=== PATIENT | male | born 1950 | race African-American/Black ===

== ENCOUNTER 2017-01-07 10:14 | Day surgery (SDC) | payer MEDICARE, OTHER ==
--- NOTE | 2017-01-06 14:33 | HP ---
ADMIT DATE: 01/07/2017 HISTORY OF PRESENT ILLNESS: The patient comes in with chief complaint of a right inguinal hernia. The patient noticed the hernia 3 months ago after doing some strenuous labor, hernia located on the right inguinal area. The patient has no acute pain associated with hernia, just slight discomfort elicited on excursion at hernia area that does not radiate anywhere else. PAST MEDICAL HISTORY: Including hypertension and prostatism. PAST SURGICAL HISTORY: Operation on back of the patient's neck for spinal stenosis, a knee operation and a shoulder operation. MEDICATIONS: The patient takes medications for his hypertension, for his prostate and a baby aspirin. ALLERGIES: The patient denies any allergies. SOCIAL HISTORY: The patient smokes a few cigarettes a day and drinks on occasion. The patient does not use any illicit drugs. PHYSICAL EXAMINATION: HEAD, EYES, EARS, NOSE AND NECK: Grossly intact with no abnormalities. CARDIOVASCULAR: Heart has normal heart rate and rhythm is regular. No murmurs. LUNGS: Clear to auscultation bilaterally, no wheezing. ABDOMEN: The right hernia is palpable, expressed with cough. The patient has normal bladder and bowel function. No other abnormalities found at this time. DIAGNOSES: Hypertension, prostatism, and right inguinal hernia. GEO MELGAR MD DR: VIVEK/len JOB#: [id number] / [id number]
[~2017-01-07] VITALS: Ht 177.8 cm; Wt 81.6 kg
[~2017-01-07 10:14] MED LIST: AMLO5TAB2 PO; ASPI-482 PO; ATOR20TA58 PO; FENTANYL PF 100 MCG/2 ML VIAL. IV PRN; HYDROMORPHONE 2 MG/ML VIAL. IV PRN; IV RINGERS,LACTATED 1000ML 1,000 ML IV SCH; LIDOCAINE 1% 1 ML SYRINGE. ID PRN; LOSA1TAB17 PO; MORPHINE SULFATE 2 MG/ML DISP.SYRIN. IV PRN; MULT-690 PO; OMEP40CA5 PO; ONDANSETRON PF 4 MG/2 ML VIAL. IV PRN; PROCHLORPERAZINE 10 MG/2 ML VIAL. IV PRN; TAMS0.4C2 PO; UBID1CAP PO
[2017-01-07 11:23] LABS: BASO # 0.1 x10^3/uL (0.0-0.2); BASO % 1 % (0-3); EOS % 1 % (0-3); HEMATOCRIT 34.2 % (39.0-53.0); HEMOGLOBIN 11.3 g/dL (13.0-17.5); LYMPH # 2.1 x10^3/uL (1.0-4.8); LYMPH % 40 % (24-48); MEAN CORPUSCULAR HEMOGLOBIN 31 pg (25-35); MEAN CORPUSCULAR HGB CONC 33 g/dL (31-37); MEAN CORPUSCULAR VOLUME 93 fL (79-100); MONO % 10 % (0-9); NEUT % 49 % (31-73); PLATELET COUNT 263 x10^3/uL (140-400); RED BLOOD COUNT 3.68 x10^6/uL (4.30-5.70); RED CELL DISTRIBUTION WIDTH 14.7 % (11.5-14.5); WHITE BLOOD COUNT 5.3 x10^3/uL (4.0-11.0)
[2017-01-07] MEDS ORDERED: BUPIVACAINE-EPI 0.5%-1:200000 50 ML VIAL. ONE (11:27)
[2017-01-07 11:28] LABS: CALCIUM 10.1 mg/dL (8.5-10.1); CREATININE 1.7 mg/dL (0.7-1.3); GFR 48.7; POTASSIUM 4.1 mmol/L (3.5-5.1)
[2017-01-07 11:38] LABS: ALBUMIN 3.8 g/dL (3.4-5.0); TOTAL BILIRUBIN 0.6 mg/dL (0.2-1.0); TOTAL PROTEIN 7.6 g/dL (6.4-8.2)
[2017-01-07 11:40] LABS: INR 1.1 (0.8-1.1); PROTHROMBIN TIME PATIENT 13.6 SEC (11.7-14.0)
[2017-01-07] MEDS ORDERED: ROCURONIUM 50 MG/5 ML VIAL. ONE (11:48)
[2017-01-07] MEDS ORDERED: PROPOFOL 20 ML IV ONE (11:48)
[2017-01-07] MEDS ORDERED: FENTANYL PF 100 MCG/2 ML VIAL. ONE (11:48)
[2017-01-07] MEDS ORDERED: MIDAZOLAM HCL 2 MG/2 ML VIAL. ONE (11:48)
[2017-01-07] MEDS ORDERED: LIDOCAINE 2% 100 MG/5 ML DISP.SYRIN. ONE (11:48)
[2017-01-07] MEDS ORDERED: DEXAMETHASONE SOD PHOS 20 MG/5 ML VIAL. ONE (11:49)
[2017-01-07] MEDS ORDERED: ONDANSETRON PF 4 MG/2 ML VIAL. ONE (11:49)
--- NOTE | 2017-01-07 11:55 | PDOC ---
SURGICAL PROGRESS NOTE Subjective Op Note: Surgeon........................... Melgar Pre op diagnosis............... Rt inguinal hernia Post op diagnosis............. Rt inguinal hernia Procedure........................ Rt inguinal hernia repair Drains............................. None Fluids.............................. See anesthesia sheet Blood Loss...................... 20cc Condition......................... Satisfactory Vital Signs Vital Signs Date Time Temp Pulse Resp B/P Pulse Ox O2 Delivery O2 Flow Rate FiO2 01/07/17 11:17 98.6 65 20 110/60 98 Room Air 98.6 Labs Laboratory Tests Test 01/07/17 11:10 White Blood Count 5.3x10^3/uL (4.0-11.0) Red Blood Count 3.68x10^6/uL (4.30-5.70) Hemoglobin 11.3g/dL (13.0-17.5) Hematocrit 34.2% (39.0-53.0) Mean Corpuscular Volume 93fL (79-100) Mean Corpuscular Hemoglobin 31pg (25-35) Mean Corpuscular Hemoglobin Concent 33g/dL (31-37) Red Cell Distribution Width 14.7% (11.5-14.5) Platelet Count 263x10^3/uL (140-400) Neutrophils (%) (Auto) 49% (31-73) Lymphocytes (%) (Auto) 40% (24-48) Monocytes (%) (Auto) 10% (0-9) Eosinophils (%) (Auto) 1% (0-3) Basophils (%) (Auto) 1% (0-3) Neutrophils # (Auto) 2.6x10^3uL (1.8-7.7) Lymphocytes # (Auto) 2.1x10^3/uL (1.0-4.8) Monocytes # (Auto) 0.5x10^3/uL (0.0-1.1) Eosinophils # (Auto) 0.0x10^3/uL (0.0-0.7) Basophils # (Auto) 0.1x10^3/uL (0.0-0.2) Prothrombin Time 13.6SEC (11.7-14.0) Prothromb Time International Ratio 1.1 (0.8-1.1) Sodium Level 144mmol/L (136-145) Potassium Level 4.1mmol/L (3.5-5.1) Chloride Level 104mmol/L (98-107) Carbon Dioxide Level 31mmol/L (21-32) Anion Gap 9 (6-14) Blood Urea Nitrogen 23mg/dL (8-26) Creatinine 1.7mg/dL (0.7-1.3) Estimated GFR (Cockcroft-Gault) 48.7 BUN/Creatinine Ratio 14 (6-20) Glucose Level 88mg/dL (70-99) Calcium Level 10.1mg/dL (8.5-10.1) Total Bilirubin 0.6mg/dL (0.2-1.0) Aspartate Amino Transf (AST/SGOT) 18U/L (15-37) Alanine Aminotransferase (ALT/SGPT) 17U/L (16-63) Alkaline Phosphatase 68U/L (46-116) Total Protein 7.6g/dL (6.4-8.2) Albumin 3.8g/dL (3.4-5.0) Albumin/Globulin Ratio 1.0 (1.0-1.7) Laboratory Tests Test 01/07/17 11:10 White Blood Count 5.3x10^3/uL (4.0-11.0) Red Blood Count 3.68x10^6/uL (4.30-5.70) Hemoglobin 11.3g/dL (13.0-17.5) Hematocrit 34.2% (39.0-53.0) Mean Corpuscular Volume 93fL (79-100) Mean Corpuscular Hemoglobin 31pg (25-35) Mean Corpuscular Hemoglobin Concent 33g/dL (31-37) Red Cell Distribution Width 14.7% (11.5-14.5) Platelet Count 263x10^3/uL (140-400) Neutrophils (%) (Auto) 49% (31-73) Lymphocytes (%) (Auto) 40% (24-48) Monocytes (%) (Auto) 10% (0-9) Eosinophils (%) (Auto) 1% (0-3) Basophils (%) (Auto) 1% (0-3) Neutrophils # (Auto) 2.6x10^3uL (1.8-7.7) Lymphocytes # (Auto) 2.1x10^3/uL (1.0-4.8) Monocytes # (Auto) 0.5x10^3/uL (0.0-1.1) Eosinophils # (Auto) 0.0x10^3/uL (0.0-0.7) Basophils # (Auto) 0.1x10^3/uL (0.0-0.2) Prothrombin Time 13.6SEC (11.7-14.0) Prothromb Time International Ratio 1.1 (0.8-1.1) Sodium Level 144mmol/L (136-145) Potassium Level 4.1mmol/L (3.5-5.1) Chloride Level 104mmol/L (98-107) Carbon Dioxide Level 31mmol/L (21-32) Anion Gap 9 (6-14) Blood Urea Nitrogen 23mg/dL (8-26) Creatinine 1.7mg/dL (0.7-1.3) Estimated GFR (Cockcroft-Gault) 48.7 BUN/Creatinine Ratio 14 (6-20) Glucose Level 88mg/dL (70-99) Calcium Level 10.1mg/dL (8.5-10.1) Total Bilirubin 0.6mg/dL (0.2-1.0) Aspartate Amino Transf (AST/SGOT) 18U/L (15-37) Alanine Aminotransferase (ALT/SGPT) 17U/L (16-63) Alkaline Phosphatase 68U/L (46-116) Total Protein 7.6g/dL (6.4-8.2) Albumin 3.8g/dL (3.4-5.0) Albumin/Globulin Ratio 1.0 (1.0-1.7) GEO MELGAR MD Jan 07, 2017 11:55
[2017-01-07] MEDS: CEFAZOLIN 1GM IVPB FOR OMNI 50 ML IV PRN ×2 (12:15→14:00)
[2017-01-07] MEDS ORDERED: PHENYLEPHRINE in 0.9% NACL PF 1 MG/10 ML DISP.SYRIN. IV ONE (12:51)
[2017-01-07] MEDS ORDERED: GLYCOPYRROLATE 1 MG/5 ML VIAL. ONE (12:52)
[2017-01-07] MEDS ORDERED: NEOSTIGMINE METHYLSULFATE 5 MG/5 ML SYRINGE. ONE (12:52)
[2017-01-07] MEDS ORDERED: EPHEDRINE PF IN SALINE 50 MG/5 ML DISP.SYRIN. IV ONE (12:53)
[2017-01-07] MEDS ORDERED: CEFAZOLIN 1GM IVPB FOR OMNI 50 ML IV ONE ×2 (13:58→14:00)
[2017-01-07] MEDS ORDERED: SEVOFLURANE > 120 MINUTES. IH ONE (14:08)
[2017-01-07] MEDS ORDERED: OXYC-323 PO (14:35)
[2017-01-07] MEDS ORDERED: OXYCODONE/APAP 7.5/325 TABLET. PO ONE (15:00)
[2017-01-07 16:10] VITALS: BP 140/68
--- NOTE | 2017-01-07 18:43 | OP ---
DATE OF SURGERY: 01/07/2017 SURGEON: Nabor Melgar M.D. PREOPERATIVE DIAGNOSIS: Right inguinal hernia. POSTOPERATIVE DIAGNOSIS: Right inguinal hernia. ANESTHESIA: General. PROCEDURE: Repair of right inguinal hernia. TECHNIQUE: Within under general anesthesia, the patient was properly prepped and draped in routine fashion. An incision in the right groin was made following the skin lines about 1 cm or above the pubis, took it laterally following the skin lines. We did this with a 15 blade. We then went through the subcutaneous down to the fascia with cautery. We divided the fascia in an oblique fashion under the direction of the fibers of the external oblique aponeurosis with a 15 blade. We then made about a quarter inch incision, spread scissors under this and then passed the scissors out and cut the fascia all the way down to include the anterior surface of the external inguinal ring. We then got the cord structures of the lateral medial sides of the external oblique aponeurosis. We then encircled the cord structures with a finger at the pubic tubercle and placed a [place] drain under this. We got rid of some the cremasteric fibers with cautery and then the cord was thick, but no hernia was noted. We then dissected into the cord and we were able to identify the sac. Sac was extended down about to the external inguinal ring and we slowly pulled it up with [place] clamp and using Metzenbaum scissors, cautery, and also a gauze pushing the tissues away from, we were able to isolate the sac well up into the internal inguinal ring. We then inverted it and placed an extra-large PerFix plug well up into the internal inguinal ring and then sutured this in place using 3-0 Vicryl. There was no further hernia formation, all was well and it had been reduced and the plug was in place. We then placed a patch over the posterior floor and around the cord structures at the keyhole and then sutured it with 2-0 Prolene around the keyhole, so that there would be no stricture of the cord. We placed this and brought down on the posterior inguinal floor and pushed it high up on the cord as we pushed the same. We then started at the pubic tubercle. We have taken two 0 Prolene sutures, taking the mesh and then placing them there and tied. We took one of them laterally, taking the shelving edge of Poubrian's ligament all up to well past the internal inguinal ring and tied it. The medial one was taken to transversalis fascia around the medial portion and past the cord and back to the Poupart's ligament and tied it. We have a good floor and good closure with no stricture of the cord structures. The procedure was basically terminated as we now anesthetized the area using 0.5% Marcaine and epinephrine at the sutured areas and where we had placed the mesh, etc. We then inspected the area of cord and testicles were in normal position and we then closed the external oblique aponeurosis using 2-0 running Prolene suture. Subcutaneous was then irrigated and then approximated using 4-0 Vicryl and the skin was closed using a subcuticular 5-0 Vicryl. Sterile Tegaderm dressings were applied and the procedure was terminated. The blood loss was probably 5-10 mL. No drains were used. FLUIDS GIVEN: Can be obtained from the anesthesia sheet. CONDITION OF THE PATIENT: Satisfactory as he is returned to the recovery room. NABOR MELGAR MD DR: VIVEK/len JOB#: [id number] / [id number]
== END 2017-01-07 16:30 | disposition home or self-care (01) ==
LOC: SURG 10:14
PROVIDERS: ATTEND Specialist
DX: K40.90 Unilateral inguinal hernia, without obstruction or gangrene, not specified as recurrent (principal); E78.00 Pure hypercholesterolemia, unspecified; I10 Essential (primary) hypertension; M19.90 Unspecified osteoarthritis, unspecified site; F17.210 Nicotine dependence, cigarettes, uncomplicated; Z87.39 Personal history of other diseases of the musculoskeletal system and connective tissue
CPT/HCPCS: 36415; 49505; 80053; 85027; 85610; J0690; J1100; J2250; J2370; J2405; J2704; J2710; J3010; J3490; A4215; C1781